=== PATIENT | male | born 2000 | race African-American/Black ===

== ENCOUNTER 2019-01-11 13:21 | Emergency (ER) | payer OTHER ==
[~2019-01-11] VITALS: Ht 185.4 cm; Wt 79.5 kg
--- NOTE | 2019-01-11 14:26 | REP ---
Right small finger series: Four views. History: Rule out a shard of glass foreign body. Findings: Four views of the right small finger demonstrate a shard like density in the palmar and ulnar aspect of the soft tissues of the middle phalanx of the small finger. This is compatible with a opaque foreign body. No fractures seen. Impression: Linear shard like foreign body in the palmar and ulnar aspect and soft tissues middle phalanx small finger. Electronically Signed by Patrick Leone MD 01/11/2019 02:17 P
[2019-01-11 15:18] VITALS: BP 125/69
--- NOTE | 2019-01-12 10:40 | ED PDOC ---
Post-Departure Follow-Up [facility] faxed fomral report of right finger film for fu l Fortino Espinosa MD Jan 12, 2019 10:40
== END 2019-01-11 15:21 | disposition home or self-care (01) ==
LOC: M ED 13:21
DX: Z18.81 Retained glass fragments (principal); M79.5 Residual foreign body in soft tissue; W25.XXXA Contact with sharp glass, initial encounter; Y92.019 Unspecified place in single-family (private) house as the place of occurrence of the external cause; F17.210 Nicotine dependence, cigarettes, uncomplicated

== ENCOUNTER 2019-11-13 08:51 | Emergency (ER) | payer OTHER ==
[~2019-11-13] VITALS: Ht 188 cm; Wt 101.0 kg
[2019-11-13 08:52] VITALS: BP 118/71
--- NOTE | 2019-11-13 10:16 | REPVR ---
PROCEDURE INFORMATION: Exam: XR Left Knee Exam date and time: 11/13/2019 9:59 AM Age: 19 years old Clinical indication: Pain; Left; Patient HX: Was doing [employer] PT this morning on a walk. [place] 3 pops in his knee while walking. ; Additional info: Trauma TECHNIQUE: Imaging protocol: XR Left knee. Views: 4 or more views. COMPARISON: No relevant prior studies available. FINDINGS: Bones/joints: There is marked patella Salome. The Insall Salvatti index is 1.85. No significant degenerative change. No active erosions or active periostitis. Bone mineralization is normal. Soft tissues: Normal. IMPRESSION: 1. No acute fracture. 2. Marked patella Salome. Concern is raised for patellar tendon injury. Consider MR for further evaluation. Electronically signed by: Leda Winchester On 11/13/2019 10:15:54 AM
--- NOTE | 2019-11-13 10:58 | ED PDOC ---
Post-Departure Follow-Up dr terrell and ft som [facility] faxed formal report of left knee film for fu Fortino Odonnell MD Nov 13, 2019 10:58
== END 2019-11-13 10:41 | disposition home or self-care (01) ==
LOC: M ED 08:51
DX: M25.562 Pain in left knee (principal)